=== PATIENT | male | born 1960 | race Caucasian/White ===

== ENCOUNTER → 2023-06-11 10:21 | Outpatient (CLI) | payer OTHER, SELFPAY ==
--- NOTE | 2023-06-11 | DI.RAD.S_ITS ---
PROCEDURE: XR HAND RT MIN 3V INDICATIONS: Other specified arthritis, right hand TECHNIQUE: 3 views of the hand(s) acquired. COMPARISON: None. FINDINGS: Bones: [id number] scattered degenerative changes, particularly at the base of the thumb. Mild periosteal thickening at the distal radius may be from prior injury. No acute displaced fracture or dislocation is identified. Minimal subchondral lucencies probably representing geodes, less likely sequela prior erosion. Soft tissues: No suspicious calcifications. IMPRESSION: No acute radiographic abnormality. [id number] scattered degenerative changes, particularly at the base of the thumb. If there is high concern for further derangement, consider MRI evaluation. Dictated by: Dhaval Elliott M.D. on 06/11/2023 at 12:54 Approved by: Dhaval Elliott M.D. on 06/11/2023 at 12:56
== END ==
PROVIDERS: PCP Family Medicine; Referring Provider Family Medicine; Visit Provider Family Medicine
DX: M13.841 Other specified arthritis, right hand (principal)
CPT/HCPCS: 73130